=== PATIENT | male | born 1980 | race Caucasian/White ===

== ENCOUNTER 2018-08-30 13:19 | Outpatient (CLI) | payer OTHER ==
--- NOTE | 2018-08-31 09:20 | MRI Report ---
Reason: PAIN IN LEFT WRIST Procedure Date: 08/30/2018 Accession Number: [id number] / [id number] Procedure: MRI - Wrist LT W/O CPT Code: FULL RESULT: EXAM: LEFT WRIST MRI WITHOUT CONTRAST EXAM DATE: 08/30/2018 02:59 PM. CLINICAL HISTORY: Left wrist pain. Surface marker in the region of interest. COMPARISON: None. TECHNIQUE: Multiplanar, multisequence T1-weighted and fluid-sensitive sequences of the wrist without contrast. Other: None. FINDINGS: Bones: There is a cyst in the scaphoid. There are no visible fractures. There is no appreciable marrow edema. Cartilage: The articular cartilage is unremarkable. The triangular fibrocartilage complex is unremarkable. Ligaments: The scapholunate and lunotriquetral ligaments are intact. The visualized other intrinsic, extrinsic and collateral ligaments are unremarkable. Tendons: The extensor compartment I through and flexor tendons are unremarkable. Musculature: No edema or fatty atrophy. Other: The contents of the carpal tunnel, including the median nerve, are unremarkable. Guyons canal is unremarkable. There is a 3 x 8 x 4 mm ganglion cyst anterior to the ulnar styloid process. There is a small joint effusion. The subcutaneous tissues are unremarkable. IMPRESSION: 1. Small cyst in the scaphoid close to the surface marker, which may indicate prior trauma. 2. Small radiocarpal and midcarpal joint effusion. 3. Ganglion cyst anterior to the ulnar styloid process. [facility]
== END 2018-08-30 13:20 | disposition home or self-care (01) ==
LOC: DI 13:19
PROVIDERS: ATTEND Family Medicine
DX: M25.832 Other specified joint disorders, left wrist (principal); M25.432 Effusion, left wrist; M67.432 Ganglion, left wrist